=== PATIENT | female | born 1980 | race Caucasian/White ===

== ENCOUNTER 2020-05-10 18:59 | Emergency (ER) | payer OTHER ==
[~2020-05-10] VITALS: Ht 165.1 cm; Wt 59.4 kg
[2020-05-10 19:15] VITALS: BP 120/79
[2020-05-10] MEDS ORDERED: HYDROcodone/APAP 5/325MG 1 TAB TABLET PO ONE (20:00)
[2020-05-10] MEDS ORDERED: ACYC800T PO (20:19)
[2020-05-10] MEDS ORDERED: HYDR-2155 PO (20:19)
--- NOTE | 2020-05-10 20:19 | PHYS DOC ---
Past History Past Medical History: Depression (VIKA GOMEZ APRN) Past Surgical History: Tonsillectomy, Tubal ligation (VIKA GOMEZ APRN) Alcohol Use: None (VIKA GOMEZ APRN) General Adult EDM: Chief Complaint: SKIN RASH/ABSCESS HPI: HPI: Patient is a 40 year old female who presents with rash under right breast for 5 days. Rash is described as very painful and puritic. Patient reports taking ibuprofen and using hydrocortisone cream at home with little relief. Denies headache. (VIKA GOMEZ APRN) Review of Systems: Review of Systems: Constitutional: Denies fever or chills Eyes: Denies change in visual acuity HENT: Denies nasal congestion or sore throat Respiratory: Denies cough or shortness of breath Cardiovascular: Denies chest pain or edema GI: Denies abdominal pain, nausea, vomiting, bloody stools or diarrhea : Denies dysuria Musculoskeletal: Denies back pain or joint pain Integument: Rash under right breast, puritic and painful Neurologic: Denies headache, focal weakness or sensory changes Endocrine: Denies polyuria or polydipsia Lymphatic: Denies swollen glands Psychiatric: Denies depression or anxiety (VIKA GOMEZ APRN) Allergies: Allergies: Allergies Coded Allergies Type Severity Reaction Last Updated Verified No Known Drug Allergies 05/10/20 No (VIKA GOMEZ APRN) Physical Exam: PE: Constitutional: Well developed, well nourished, no acute distress, non-toxic appearance. [] HENT: Normocephalic, atraumatic, bilateral external ears normal, oropharynx moist, no oral exudates, nose normal. [] Eyes: PERRLA, EOMI, conjunctiva normal, no discharge. [] Neck: Normal range of motion, no tenderness, supple, no stridor. [] Cardiovascular:Heart rate regular rhythm, no murmur [] Lungs & Thorax: Bilateral breath sounds clear to auscultation [] Abdomen: Bowel sounds normal, soft, no tenderness, no masses, no pulsatile masses. [] Skin: Warm, maculopapular rash with some vesicles under right breast Back: No tenderness, no CVA tenderness. [] Extremities: No tenderness, no cyanosis, no clubbing, ROM intact, no edema. [] Neurologic: Alert and oriented X 3, normal motor function, normal sensory function, no focal deficits noted. [] Psychologic: Affect normal, judgement normal, mood normal. [] (VIKA GOMEZ APRN) Current Patient Data: Vital Signs: Vital Signs Date Time Temp Pulse Resp B/P (MAP) Pulse Ox O2 Delivery O2 Flow Rate FiO2 05/10/20 19:15 97.7 103 20 120/79 (93) 97 Room Air (VIKA GOMEZ APRN) EKG: EKG: [] (VIKA GOMEZ APRN) Radiology/Procedures: Radiology/Procedures: [] (VIKA GOMEZ APRN) Heart Score: Risk Factors: Risk Factors: DM, Current or recent (<one month) smoker, HTN, HLP, family history of CAD, obesity. Risk Scores: Score 0 - 3: 2.5% MACE over next 6 weeks - Discharge Home Score 4 - 6: 20.3% MACE over next 6 weeks - Admit for Clinical Observation Score 7 - 10: 72.7% MACE over next 6 weeks - Early Invasive Strategies (VIKA GOMEZ APRN) Course & Med Decision Making: Course & Med Decision Making Pertinent Labs and Imaging studies reviewed. (See chart for details) []Patient is a 40 year old female who presents with rash under right breast for 5 days. Rash is described as very painful and puritic. Patient reports taking ibuprofen and using hydrocortisone cream at home with little relief. Denies headache. Acyclovir ordered to treat and hydrocodone for pain. PCP referral given. Patient just moved here from [place]. (VIKA GOMEZ APRN) Dragon Disclaimer: Dragon Disclaimer: This electronic medical record was generated, in whole or in part, using a voice recognition dictation system. (VIKA GOMEZ APRN) Departure Departure: Impression: Primary Impression: [place] Disposition: 01 DC HOME SELF CARE/HOMELESS Condition: GOOD Referrals: JAVAD MARC Patient Instructions: Callie, [id number] Additional Instructions: You were seen in the ER today for rash under your right breast and side. I have prescribed you hydrocodone at home and also acylovir. I gave you a referral for a Primary care doctor to follow up with if symptoms worsen or you have further concerns. You can also return to the ER with worsening symptoms. You may also take ibuprofen at home for pain. Your lesions will be contagious until they are crusted over. Please avoid touching the area to prevent spreading to others or other parts of your body. EMERGENCY DEPARTMENT GENERAL DISCHARGE INSTRUCTIONS Thank you for coming to [facility] (ED) today and trusting us with you care. We trust that you had a positivie experience in our Emergency Department. If you wish to speak to the department management, you may call the director at [phone]. YOUR FOLLOW UP INSTRUCTIONS ARE FOLLOWS: 1. Do you have a private Doctor? If you do not have a private doctor, please a sk for a resource list of physicians or clinics that may be able to assist you with follow up care. 2. The Emergency Physician has interpreted your x-rays. The X-Ray specialist will also review them. If there is a change in the findings, you will be notified in 48 hours when at all possible. 3. A lab test or culture has been done, your results will be reviewed and you will be notified if you need a change in treatment. ADDITIONAL INSTRUCTIONS AND INFORMATION: 1. Your care today has been supervised by a physician who is specially trained in emergency care. Many problems require more than one evaluation for a complete diagnosis and treatment. We recommend that you schedule your follow up appointment as recommended to ensure complete treatment of you illness or injury. If you are unable to obtain follow up care and continue to have a problem, or if your condition worsens, we recommend that you return to the ED. 2. We are not able to safely determine your condition over the phone nor are we able to give sound medical advice over the phone. For these safety reasons, if you call for medical advice we will ask you to come to the ED for further evaluation. 3. If you have any questions regarding these discharge instructions please call the ED at [phone]. SAFETY INFORMATION: In the interest of safety, wellness, and injury prevention; we encourage you to wear your sealbelt, if you smoke; quite smoking, and we encourage family to use a protective helmet for bicycling and other sporting events that present an increased risk for head injury. IF YOUR SYMPTOMS WORSEN OR NEW SYMPTOMS DEVELOP, OR YOU HAVE CONCERNS ABOUT YOUR CONDITION; OR IF YOUR CONDITION WORSENS WHILE YOU ARE WAITING FOR YOUR FOLLOW UP APPOINTMENT; EITHER CONTACT YOUR PRIMARY CARE DOCTOR, THE PHYSICIAN WHOSE NAME AND NUMBER YOU WERE GIVEN, OR RETURN TO THE ED IMMEDIATELY. Scripts Hydrocodone Bit/Acetaminophen (HYDROCODONE-APAP 5-325 ) 1 Each Tablet 1 TAB PO PRN Q6HRS PRN for PAIN for 3 Days, #12 TAB 0 Refills Prov: JASONVIKA GRANGER 05/10/20 Acyclovir (ACYCLOVIR) 800 Mg Tablet 800 MG PO Q4HRS for herpes zoster for 7 Days, #42 TAB Prov: VIKA GOMEZ APRN 05/10/20 Attending Co-Sign Attending Co-Sign The patient was seen and interviewed as well as examined at the bedside. The chart was reviewed. The case was discussed. Agree with the plan of care. (CHRISTINE DIANA MD) Attending Signature Attending Signature I have participated in the care of this patient and I have reviewed and agree with all pertinent clinical information above including history, exam, and recommendations. (CHRISTINE DIANA MD) VIKA GOMEZ APRN May 10, 2020 20:19 CHRISTINE DIANA MD May 14, 2020 02:43
== END 2020-05-10 20:24 | disposition home or self-care (01) ==
LOC: ER 18:59
DX: B02.9 Zoster without complications (principal); F32.9 Major depressive disorder, single episode, unspecified
CPT/HCPCS: 99283